=== PATIENT | male | born 1995 ===

== ENCOUNTER 2022-08-05 11:21 | Emergency (ER) | payer SELFPAY ==
--- NOTE | ~2022-08-05 | XR_ITS ---
EXAMINATION: XR KNEE, RIGHT CLINICAL INFORMATION: Right knee pain. COMPARISON: None available. TECHNIQUE: Four views of the right knee. FINDINGS: There is no acute fracture or dislocation. The joint spaces are unremarkable. Is no joint effusion. Incidental sclerotic lesion with narrow zone transition medially in the distal femoral metadiaphysis. The soft tissues are unremarkable. XR/XR knee RT 4V IMPRESSION: 1. No acute abnormality or significant degenerative changes. 2. 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
[2022-08-05 11:29] VITALS: BP 120/70; PULSE 76; RESP 18; TEMP 36.7; O2SAT 99; BMI 29.8
--- NOTE | 2022-08-05 11:31 | ED_ITS ---
HPI - General Adult General Chief complaint: Extremity Injury, Lower Stated complaint: r knee pain Time Seen by Provider: 08/05/22 11:35 History of Present Illness HPI narrative: Patient complains of right knee pain after twisting it and basketball yesterday, he can walk on it but he is limping Denies any other injury Related Data Allergies Allergy/AdvReac Type Severity Reaction Status Date / Time No Known Allergies Allergy Unverified 11/12/19 16:32 [facility] Past Medical History Source: nursing notes reviewed Social History Social History Alcohol intake: never Smoked in Last 30 Days: No Use of substances other than those prescribed or required for medical reasons: No Advance Directives: No Physical Exam ED Vital Signs: Vital Signs - 24 hr 08/05/22 11:29 08/05/22 12:53 Temperature 98.1 F Pulse Rate 76 77 Respiratory Rate 18 15 Blood Pressure 120/70 112/74 Pulse Oximetry 99 96 Oxygen Delivery Method Room Air Room Air BMI result Body Mass Index 29.8 General appearance no distress Head is normocephalic atraumatic Neck is supple Respiratory no distress Extremities full range of motion x4 including right knee which extends to 180 flexes well past 90, there is lateral joint line tenderness, there is no ligamentous laxity, he can do a straight leg raise, there is no obvious swelling no obvious effusion, skin is normal color, he can walk on it with a slight limp Course Course Course Narrative: RME: 26 yold male presents to the ED for right knee pain while playing basketball. patient denies any blunt trauma or falling. patient states doing huy kward cuts to the basket causing knee pain. Knee xray ordered Right knee x-ray showed no acute fracture or bony abnormality, incidental finding is sclerotic lesion in distal femoral, likely benign per radiologist, but patient is referred to orthopedist for further evaluation of this and his knee, he ambulated easily from the ER with a mild limp and was discharged follow with orthopedics which he agreed to do, he is given a copy of his x-ray report Discharge Plan Discharge Clinical Impression: Right knee sprain Patient Disposition: Home, Self-Care Additional Instructions: You likely sprained knee when you twisted and basketball, this may get better on its own over a couple weeks, follow with orthopedist call to make an appointment Also x-ray showed a bone lesion which is likely something called a fibroma, but best plan is see orthopedist and make sure if there is any follow-up or t reatment needed Return any time any worse condition or any concerns Apply ice, Motrin if needed Referrals: Zac Haider MD [Physician] - (Right knee sprain, incidental finding of sclerotic bone lesion) Interventions: ED Discharge Assessment Last Done: 08/05/22 12:53 Discharge Date/Time: 08/05/22 12:56
--- NOTE | 2022-08-05 11:36 | PC.NURSE ---
Patient was playing basketball last night and feels that he might have hyperextended his knee. Pain started last night but was worse this morning when he woke up. Patient is able to bear weight on the affected leg. Patient is otherwise well appearing.
[2022-08-05 12:53] VITALS: BP 112/74; PULSE 77; RESP 15; O2SAT 96
== END 2022-08-05 12:56 | disposition home or self-care (01) ==
PROVIDERS: Emergency Provider Student in an Organized Health Care Education/Training Program
DX: M25.561 Pain in right knee (principal)
CPT/HCPCS: 73564; 99283; 99284

== ENCOUNTER 2023-03-25 10:15 | Emergency (ER) | payer SELFPAY ==
--- NOTE | ~2023-03-25 | XR_ITS ---
EXAMINATION: XR LUMBAR SPINE XR SACRUM/COCCYX CLINICAL INFORMATION: Back pain. COMPARISON: None available. TECHNIQUE: 3 views of the lumbar spine. 3 views of the sacrum/coccyx. 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 Mild multilevel lumbar spondylosis. SACRUM/COCCYX: Mild degenerative changes with sclerosis in the bilateral sacroiliac joints. Small rounded pelvic calcifications, some of which could be vascular. Visualization of the sacrum/coccyx is limited due to overlying bowel and soft tissues. XR/XR lumbar spine 2-3V IMPRESSION: 1. Facet arthritis in the lower lumbar spine. 2. Mild multilevel lumbar spondylosis. 3. Mild degenerative changes with sclerosis in the bilateral sacroiliac joints. Correlation with clinical exam recommended to determine further management. If there is concern for fracture or other underlying pathology, MRI could be obtained for further evaluation.
--- NOTE | ~2023-03-25 | XR_ITS ---
EXAMINATION: XR LUMBAR SPINE XR SACRUM/COCCYX CLINICAL INFORMATION: Back pain. COMPARISON: None available. TECHNIQUE: 3 views of the lumbar spine. 3 views of the sacrum/coccyx. 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 Mild multilevel lumbar spondylosis. SACRUM/COCCYX: Mild degenerative changes with sclerosis in the bilateral sacroiliac joints. Small rounded pelvic calcifications, some of which could be vascular. Visualization of the sacrum/coccyx is limited due to overlying bowel and soft tissues. XR/XR sacrum coccyx min 2V IMPRESSION: 1. Facet arthritis in the lower lumbar spine. 2. Mild multilevel lumbar spondylosis. 3. Mild degenerative changes with sclerosis in the bilateral sacroiliac joints. Correlation with clinical exam recommended to determine further management. If there is concern for fracture or other underlying pathology, MRI could be obtained for further evaluation.
[2023-03-25 10:17] VITALS: BP 115/76; PULSE 72; RESP 19; TEMP 36.7; O2SAT 98; BMI 27.4
[2023-03-25] MEDS: Acetaminophen 325 MG TABLET 975 MG PO (11:56)
--- NOTE | 2023-03-25 11:56 | PC.NURSE ---
pt a&ox3, rt lower back pain 11/04, pt medicated per order, call salas within reach, will continue to monitor
--- NOTE | 2023-03-25 13:37 | ED.FALL ---
HPI - Fall General Chief Complaint: Fall Stated Complaint: fall back pain and leg pain Time Seen by Provider: 03/25/23 10:24 Source: patient and RN notes reviewed Mode of arrival: ambulatory Limitations: no limitations History of Present Illness HPI Narrative: This is a 27-year-old male, with no known medical problems, presenting to the emergency department complaints of low back pain status post mechanical fall which occurred yesterday. Patient states that he was playing basketball when suddenly he fell backwards onto his buttocks. He states that he was able to ambulate after the injury, states that he did not initially have pain however gradually throughout the rest of the evening his pain in his low back worsened. He states that the pain is constant and occasionally radiates into his right buttocks. Denies any numbness, tingling or weakness. No saddle anesthesia, no urinary or bowel incontinence. Denies history of back problems. He denies hitting his head or loss of consciousness during the fall. Denies headaches, dizziness, lightheadedness, chest pain, shortness of breath, abdominal pain, nausea, vomiting or diarrhea. Denies any urinary symptoms. No other complaints or concerns at this time. MD complaint: fall Onset (ago): day(s) Fall from: standing Fall witnessed: yes, by bystander Place fall occurred: street Loss of consciousness: none Prolonged down time: no Symptoms prior to fall: none Location of injury: buttocks Quality: aching Associated symptoms (after fall): denies Related Data Previous Rx's Medication Instructions Recorded ibuprofen 600 mg tablet 600 mg PO Q6H PRN pain #30 tabs 03/25/23 Allergies Allergy/AdvReac Type Severity Reaction Status Date / Time No Known Allergies Allergy Unverified 11/12/19 16:32 Review of Systems Review of Systems: Yes all other systems are reviewed and are negative [facility] Social History Social History Alcohol intake: never Advance Directives: No Advance Directives Information Provided: No Physical Exam Vital Signs: Vital Signs: Last Vital Signs Temp 98.0 F 03/25/23 10:17 Pulse 72 03/25/23 10:17 Resp 19 03/25/23 10:17 BP 115/76 03/25/23 10:17 Pulse Ox 98 03/25/23 10:17 O2 Del Method Room Air 03/25/23 10:17 BMI result Body Mass Index 27.4 Const: Other: General: Awake, alert, and oriented X3. No acute distress. HEENT: Normal inspection CVS: Normal heart rate and rhythm. Pulses normal. Respiratory: No respiratory distress Skin: Warm, dry, no rashes noted to exposed skin. Normal skin color. Normal skin turgor. Extremities: Normal to inspection MSK: Tenderness to palpation along the midline lumbar spine as well as and coccyx, worsening pain overlying the right paraspinous muscles. Strength 5/5 in lower extremities. Distal sensation circulation intact. Neuro: Oriented X 3. No motor deficit. No sensory deficit. Medications Administered Discontinued Medications Generic Name Dose Route Start Last Admin Trade Name Freq PRN Reason Stop Dose Admin Acetaminophen 975 mg 03/25/23 11:53 03/25/23 11:56 Acetaminophen 325 Mg Tablet PO 03/25/23 11:54 975 mg ONCE ONE Administration Medical Decision Making Medical Decision Making [facility] Narrative: This is a 27-year-old male presenting to the emergency department with complaints of low back pain status post mechanical fall which occurred yesterday. No LOC or head strike. On arrival, vital signs within normal limits. Patient has tenderness palpation along the lumbar midline spine, as well as sacrum and coccyx region, however more tenderness palpation along the lumbar paraspinous muscles. No urinary or bowel retention or incontinence. No saddle anesthesia. No other red flag back symptoms. He has not taken any medications at home to treat his current pain, medicated with Tylenol 1 g p.o. given midline spine tenderness, will obtain sacrum and coccyx x-ray as well as lumbar spine x-ray. These were reviewed revealing degenerative changes without any acute injury. I discussed these findings with patient, and I did advise patient to follow-up with his primary care physician for further evaluation as he may need additional diagnostic studies. He does not warrant any MRI testing at this time as he has no neurologic deficits on examination. Patient understands and agrees with plan. Patient stable for discharge. Differential Diagnosis Differential Diagnoses: The differential diagnosis associated with the presentation includes Contusion, sprain, strain, disc herniation, cauda equina syndrome-unlikely, pyelonephritis-unlikely given mechanism Independent Interpretation I performed an independent interpretation of an: Plain X-Ray Interpretation: I reviewed the x-ray and agree with the radiology report Radiology Impression Discussion of test interpretation with radiology: I have reviewed the radiologist's reading. Radiologist Impression: EXAMINATION: XR LUMBAR SPINE XR SACRUM/COCCYX CLINICAL INFORMATION: Back pain. COMPARISON: None available. TECHNIQUE: 3 views of the lumbar spine. 3 views of the sacrum/coccyx. 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 Mild multilevel lumbar spondylosis. SACRUM/COCCYX: Mild degenerative changes with sclerosis in the bilateral sacroiliac joints. Small rounded pelvic calcifications, some of which could be vascular. Visualization of the sacrum/coccyx is limited due to overlying bowel and soft tissues. XR/XR sacrum coccyx min 2V IMPRESSION: 1. Facet arthritis in the lower lumbar spine. 2. Mild multilevel lumbar spondylosis. 3. Mild degenerative changes with sclerosis in the bilateral sacroiliac joints. Correlation with clinical exam recommended to determine further management. If there is concern for fracture or other underlying pathology, MRI could be obtained for further evaluation. Dictated By: Sandy Kaufman MD Signed By: <Electronically signed by Sandy Kaufman MD in OV> Tests considered The following testing was considered but not selected: MRI however given no neurologic deficits or red flag back symptoms, will defer Discharge Plan Discharge Clinical Impression: Contusion of back, Spondylosis, Degenerative joint disease of sacroiliac joint Patient Disposition: Home, Self-Care Instructions: Acute Low Back Pain (ED) Additional Instructions: You were seen in the emergency department for back pain. Your x-ray of your back does not show any new bony abnormalities. Does show degenerative changes in your spine. I want to follow-up with your primary care physician regarding this visit, call today to make an appointment. Please rest, ice, gentle stretching massage can help with your symptoms. Ibuprofen also can be helpful to reduce inflammation pain. If any new or worsening symptoms occur including but not limited to numbness and tingling into your groin, urinary or bowel retention or incontinence, please immediately seek emergent care. If you develop any chest pain or shortness breast, please return for re-evaluation Prescriptions: New ibuprofen 600 mg tablet 600 mg PO Q6H PRN (Reason: pain) Qty: 30 0RF Stand Alone Forms: Work/School Release Interventions: ED Discharge Assessment Last Done: 03/25/23 14:00
== END 2023-03-25 14:09 | disposition home or self-care (01) ==
PROVIDERS: Emergency Provider Emergency Medicine
DX: S30.0XXA Contusion of lower back and pelvis, initial encounter (principal); W18.30XA Fall on same level, unspecified, initial encounter; Y93.67 Activity, basketball; Y92.9 Unspecified place or not applicable; Y99.9 Unspecified external cause status; M54.50 Low back pain, unspecified; M47.816 Spondylosis without myelopathy or radiculopathy, lumbar region; M46.1 Sacroiliitis, not elsewhere classified
CPT/HCPCS: 72100; 72220; 99283

== ENCOUNTER 2023-10-26 10:17 | Emergency (ER) | payer SELFPAY ==
--- NOTE | ~2023-10-26 | XR_ITS ---
EXAMINATION: XR CHEST CLINICAL INFORMATION: chest pain COMPARISON: None TECHNIQUE: 2 views of the chest FINDINGS: Lines and tubes: EKG leads overlie the patient. Clear lungs. No pleural effusion. No pneumothorax. Normal cardiomediastinal silhouette. XR/XR chest 2V IMPRESSION: * Clear lungs. Electronically signed by: Maribell Cheung MD 10/26/2023 01:08 PM EDT RP
--- NOTE | 2023-10-26 10:20 | ECG_ITS ---
Test Reason : CHEST PAIN Blood Pressure : / mmHG Vent. Rate : 085 BPM Atrial Rate : 085 BPM P-R Int : 168 ms QRS Dur : 084 ms QT Int : 356 ms P-R-T Axes : 078 065 028 degrees QTc Int : 423 ms Normal sinus rhythm Normal ECG No previous ECGs available Referred By: Generic ED Physician Electronically Signed By:CLARITA SALEH
[2023-10-26 10:29] VITALS: BP 119/71; PULSE 94; RESP 16; TEMP 36.7; O2SAT 100; BMI 27.5
--- NOTE | 2023-10-26 10:46 | ED.CHESTPAIN ---
HPI - Chest Pain General Chief Complaint: Chest Pain Stated Complaint: chest pain Time Seen by Provider: 10/26/23 10:36 Source: patient Mode of arrival: ambulatory Limitations: no limitations History of Present Illness HPI narrative: This is a 28 years old male presented to the emergency department complaining of left side chest wall pain since yesterday pain is worse with movement. He states that he has been doing a lot a push-up. Denies any shortness of breath any other systemic symptoms complaint: chest pain Onset (ago): day(s) (1) Timing of current episode: constant Pain location: substernal and left chest Severity: moderate Quality: aching Relieving factors: rest Exacerbating factors: movement Risk Factors Thoracic aortic dissection risk factors: none Related Data Previous Rx's ?Medication ?Instructions ?Recorded ibuprofen 600 mg tablet 600 mg PO Q6H PRN pain #30 tabs 03/25/23 ibuprofen 800 mg tablet 800 mg PO TID PRN pain #20 tabs 10/26/23 Allergies Allergy/AdvReac Type Severity Reaction Status Date / Time No Known Allergies Allergy Verified 10/26/23 10:30 Review of Systems Constitutional: Constitutional: Reports no additional constitutional complaints ENT: Reports system reviewed and no additional complaints, except as documented Cardiovascular: Cardiovascular: Reports as per HPI [facility] Past Medical History [facility] Narrative: Denies any major medical Social History Social History Alcohol intake: never Advance Directives: No Advance Directives Information Provided: Yes Do you have a plan to hurt others: No Plan Physical Exam Vital Signs: Vital Signs: Last Vital Signs Temp 98.2 F 10/26/23 13:09 Pulse 65 10/26/23 13:09 Resp 16 10/26/23 13:09 BP 112/69 10/26/23 13:09 Pulse Ox 98 10/26/23 13:09 O2 Del Method Room Air 10/26/23 13:09 BMI result Body Mass Index 27.5 Const: General: cooperative Nutritional Appearance: average body habitus Orientation/consciousness: patient oriented x3 Limitations: no limitations HEENT: Head: Yes normal to inspection Ears: hearing grossly normal bilaterally General nose exam: Normal external nose present Face and sinus: Yes normal facial exam Mouth: Normal oral and palatal mucosa present Neck: Neck: Yes normal visual inspection Chest: Chest palpation & inspection: normal inspection of the chest Resp: Effort & Inspection: normal respiratory effort Cardio: Jugular venous distension: no JVD Palpation: normal PMI Rate: regular rate GI: Inspection: Yes normal to inspection Skin: General skin exam: no rashes or lesions noted Neuro: General: patient oriented x3 Course Reevaluation(s) Reevaluation #1: Patient is feeling much better at this time chest x-ray negative EKG normal this is clearly musculoskeletal pain Time: 13:53 Medications Administered Discontinued Medications Generic Name Dose Route Start Last Admin Trade Name Freq PRN Reason Stop Dose Admin Ibuprofen 800 mg 10/26/23 10:49 10/26/23 10:59 Ibuprofen 800 Mg Tablet PO 10/26/23 10:50 800 mg ONCE ONE Administration Medical Decision Making Medical Decision Making [facility] Narrative: Patient presented to the emergency department with chest wall pain clearly musculoskeletal will do an EKG a chest x-ray Differential Diagnosis Differential Diagnoses: The differential diagnosis associated with the presentation includes ACS/pneumothorax/ribs fracture/musculoskeletal pain Independent Interpretation I performed an independent interpretation of an: EKG (Normal sinus rhythm no ST-T changes) Radiology Impression Discussion of test interpretation with radiology: I have reviewed the radiologist's reading. Discharge Plan Discharge Clinical Impression: Chest pain Qualifiers: Chest pain type: unspecified Qualified Code(s): R07.9 - Chest pain, unspecified Patient Disposition: Home, Self-Care Instructions: Chest Pain (ED) Additional Instructions: Follow-up with your primary care physician return if you worse Prescriptions: New ibuprofen 800 mg tablet 800 mg PO TID PRN (Reason: pain) Qty: 20 0RF No Action ibuprofen 600 mg tablet 600 mg PO Q6H PRN (Reason: pain) Qty: 30 0RF Print Language: Bangladeshi
--- NOTE | 2023-10-26 10:50 | PC.NURSE ---
pt to xray at this time.
[2023-10-26] MEDS: Ibuprofen 800 MG TABLET PO (10:59)
--- NOTE | 2023-10-26 11:02 | PC.NURSE ---
a&ox4. vss and up to date. pt presents to the ED w/ nonradiating left sided chest wall pain x a few days ago. denies any aggravating factors aside from working out more recently. denies any associated sob. no wob noted. respirations even/unlabored. plan of care ongoing.
--- NOTE | 2023-10-26 13:05 | PC.NURSE ---
pt continues to rest in no apparent distress. waiting for xray results at this time. no sob/wob noted. respirations even/unlabored. plan of care ongoing. call salas placed within reach.
[2023-10-26 13:09] VITALS: BP 112/69; PULSE 65; RESP 16; TEMP 36.8; O2SAT 98
[2023-10-26 13:54] VITALS: BP 112/69; PULSE 65; RESP 16; TEMP 36.8; O2SAT 98
== END 2023-10-26 13:58 | disposition home or self-care (01) ==
PROVIDERS: Emergency Provider Emergency Medicine
DX: R07.9 Chest pain, unspecified (principal)
CPT/HCPCS: 71046; 93005; 99283; 99285

== ENCOUNTER 2024-01-25 12:52 | Emergency (ER) | payer MEDICAID, SELFPAY ==
[2024-01-25 12:59] VITALS: BP 117/67; PULSE 77; RESP 18; TEMP 36.9; O2SAT 98; BMI 26.3
--- NOTE | 2024-01-25 13:01 | ED.GENADULT ---
HPI - General Adult General Chief complaint: Eye Problems Stated complaint: poked in eye Time Seen by Provider: 01/25/24 13:17 Source: patient Mode of arrival: ambulatory Limitations: no limitations History of Present Illness ED Provider: Candida Lopes NP HPI narrative: Patient is a 28-year-old male presents emergency department for evaluation. Reports yesterday he was accidentally poked in the eye by another person's finger while playing basketball. He endorses a foreign body type sensation, has redness swelling and bruising to the medial canthus/periorbital region of the eye. Does not wear contact lenses. Has associated photophobia Related Data Previous Rx's ?Medication ?Instructions ?Recorded ibuprofen 600 mg tablet 600 mg PO Q6H PRN pain #30 tabs 03/25/23 ibuprofen 800 mg tablet 800 mg PO TID PRN pain #20 tabs 10/26/23 ofloxacin 0.3 % eye drops See Rx Instructions ophthalmic 01/25/24 (eye) .COMPLEX #10 mL Allergies Allergy/AdvReac Type Severity Reaction Status Date / Time No Known Allergies Allergy Verified 01/25/24 13:02 Review of Systems Review of Systems: Yes all other systems are reviewed and are negative PMFSH Past Medical History Attestation statement: The following information was validated with the patient. Source: old records reviewed Social History Social History Alcohol intake: never Advance Directives: No Advance Directives Information Provided: Yes Do you have a plan to hurt others: No Plan Physical Exam ED Vital Signs: Vital Signs - 24 hr 01/25/24 12:59 Temperature 98.4 F Pulse Rate 77 Respiratory Rate 18 Blood Pressure 117/67 Pulse Oximetry 98 Oxygen Delivery Method Room Air BMI result Body Mass Index 26.3 Appearance: Alert.?Oriented to person, place and time. No acute distress.?Normal affect. Eyes: Pupils equal, round and reactive to light.? EOMI. No nystagmus. Conjunctival injected and erythematous. Sclera injected and erythematous. IOP: Left - 16, Right - 19. Visual acuity: Left - 20/40, Right - 20/50, Both 20/25. Fluorescein staining without evidence of uptake/corneal abrasion. No chemosis. No hyphema. ENT: Pharynx normal.?? Neck: Normal inspection.? Neck supple.?? CVS: Heart sounds normal. Normal heart rate and rhythm.? Pulses normal.?? Respiratory: No respiratory distress.? Lung sounds clear to auscultation bilaterally?? Skin: Skin warm and dry.? Normal skin color.? Extremities: No lower extremity edema.? Neuro: Moves all extremities spontaneously. Sensation intact bilaterally. CN II-XII intact. No focal neuro deficits. Ambulates with normal steady gait. Course Course Course Narrative: This is a Rapid Medical Examination (RME) performed by Jose De Jesus Gaffney PA-C in triage. Full HPI, ROS, assessment and treatment plan per primary provider in the Main ED. 28 yo male here for eval of right eye pain and blurred vision after being poked in the affected eye by a finger while playing basketball last night. endorses FB sensation. +erythema/ecchymosis to upper eyelid. noted conjunctival injection. no obvious FB. photophobia. EOMs intact without entrapment, pain on upward motion. Plan: visual acuity, fluorescein, tetracaine, IOPs Medical Decision Making Medical Decision Making MDM Narrative: Presenting to emergency department for evaluation of traumatic injury to the right eye. Poked in the eye while playing basketball, pain is not out of proportion, acuity is near symmetrical to the left, negative Linette sign, no teardrop pupil, no evidence of a hyphema lip laceration to suggest globe rupture. No tenderness upon palpation to the orbit, restriction and gaze to suggest blowout fracture. No hyphema. No proptosis, increased intra-ocular pressure, or impaired EOM to suggest retro-orbital hemorrhage. Fluorescein staining without evidence of uptake to suggest corneal abrasion, ulcer, or hepatic dendrite. No evidence of foreign body on examination, lid eversion is negative. No associated unilateral headache, fixed pupil, associated vomiting, or increased intra-ocular pressure to suggest acute angle glaucoma. No periorbital edema erythema or warmth to suggest periorbital cellulitis, no painful EOMI to suggest orbital cellulitis. No ciliary flushing or consensual photophobia to suggest uveitis/iritis. Patient being discharged with prescription for ofloxacin drops and strict return precautions Differential Diagnosis Differential Diagnoses: The differential diagnosis associated with the presentation includes (See narrative above) External Record Review External record reviewed: Outpatient record Prescription Management I considered prescription management with: Pain Medication and Antibiotic Discharge Plan Discharge Clinical Impression: Conjunctivitis Qualifiers: Conjunctivitis type: acute Laterality: right Patient Disposition: Home, Self-Care Instructions: Conjunctivitis (ED) Additional Instructions: Warm moist compresses for 10-15 minutes 3-4 times daily. You can take ibuprofen 200 mg, 3 tablets (600mg) every 6-8 hours as needed for pain, in addition to Tylenol 500 mg, 2 tablets (1,000mg) every 4-6 hours as needed for pain, but not to exceed 3 doses daily (3,000mg).? Use antibiotic eyedrops as prescribed. As discussed, if you have sudden worsening or change to your pain, visual changes, new or worsening symptoms or concerns you should seek re-evaluation promptly. Prescriptions: New ofloxacin 0.3 % drops See Rx Instructions .ROUTE .COMPLEX Qty: 10 0RF Rx Instructions: put 1-2 drps into affected eye(s) every 2-4 h x 2 days, then 1-2 drps 4 times/day days 3-7 No Action ibuprofen 600 mg tablet 600 mg PO Q6H PRN (Reason: pain) Qty: 30 0RF ibuprofen 800 mg tablet 800 mg PO TID PRN (Reason: pain) Qty: 20 0RF Referrals: Physician,None [Primary Care Provider] - Print Language: Latvian
[2024-01-25] MEDS: Fluorescein Sodium STRIP 1 STRIP EYE-RIGHT (13:37)
[2024-01-25] MEDS: Tetracaine HCl/PF 0.5% Oph Sol 4 ML DROPS 1 DROP EYE-RIGHT (13:37)
[2024-01-25 13:59] VITALS: BP 117/67; PULSE 77; RESP 18; TEMP 36.9; O2SAT 98
== END 2024-01-25 14:02 | disposition home or self-care (01) ==
PROVIDERS: Emergency Provider Emergency Medicine
DX: H10.31 Unspecified acute conjunctivitis, right eye (principal); H57.11 Ocular pain, right eye
CPT/HCPCS: 99282; 99283

== ENCOUNTER 2024-06-02 08:20 | Emergency (ER) | payer MEDICAID, SELFPAY ==
[2024-06-02 08:28] VITALS: BP 118/82; PULSE 66; RESP 18; TEMP 36.6; O2SAT 99; BMI 26.4
--- NOTE | 2024-06-02 09:18 | ED.GENADULT ---
HPI - General Adult General Chief complaint: General Medical Stated complaint: Facial swelling L side Time Seen by Provider: 06/02/24 10:05 Source: patient Mode of arrival: ambulatory Limitations: no limitations History of Present Illness ED Provider: DULCE BRANTLEY narrative: 28 yo male otherwise healthy upper gum pain and now cheek swelling on and off for 3 days. No vision issues, no severe headaches and no fevers. He states he cannot see his dentist until next week. He is able to eat and drink. MD complaint: dental and facial swelling Onset (ago): day(s) (3) Location: mouth Radiation: non-radiation Severity: moderate Quality: aching Pain Consistency: constant Relieving factors: none Exacerbating factors: eating Associated symptoms: denies other symptoms Treatments prior to arrival: none Related Data Previous Rx's ?Medication ?Instructions ?Recorded ibuprofen 600 mg tablet 600 mg PO Q6H PRN pain #30 tabs 03/25/23 ibuprofen 800 mg tablet 800 mg PO TID PRN pain #20 tabs 10/26/23 ofloxacin 0.3 % eye drops See Rx Instructions ophthalmic 01/25/24 (eye) .COMPLEX #10 mL amoxicillin 875 mg-potassium 1 tab PO BID #14 tabs 06/02/24 clavulanate 125 mg tablet tramadol 50 mg tablet 50 mg PO Q8H PRN pain #12 tabs 06/02/24 Allergies Allergy/AdvReac Type Severity Reaction Status Date / Time No Known Allergies Allergy Verified 06/02/24 08:30 Review of Systems Review of Systems: Constitutional : No Fever, No Chills ENT/Mouth : No swallowing difficulty, no change in voice, positive dental pain, positive jaw pain, positive facial swelling Eyes: No Eye Pain, No Swelling Cardiovascular : No Chest Pain, No SOB Respiratory : No Cough, No Sputum Gastrointestinal : No Nausea, No Vomiting, No Diarrhea Genitourinary : No Dysuria Musculoskeletal : No Myalgias Skin : No rash Neuro : No Weakness, No Numbness, No Headache all other systems reviewed and are negative [facility] Past Medical History Attestation statement: The following information was validated with the patient. Source: old records reviewed Medical History No pertinent past medical history Social History Social History (Updated 06/02/24 @ 10:22 by Janeen Fisk, DO) Alcohol intake: never Patient Tobacco Use Status: Never used Tobacco Physical Exam ED Vital Signs: Vital Signs - 24 hr 06/02/24 08:28 Temperature 98 F Pulse Rate 66 Respiratory Rate 18 Blood Pressure 118/82 Pulse Oximetry 99 Oxygen Delivery Method Room Air BMI result Body Mass Index 26.4 Appearance: Alert. Oriented X3. No acute distress. Eyes: Pupils equal, round and reactive to light. ENT: No trismus has poor dentition and fluctuant area but not large unable to aspirate, L cheek very isolated boggy area but no redness and no extension to eye - normal EOM Neck: Normal inspection. Neck supple. CVS: Normal heart rate and rhythm. Pulses normal. Respiratory: No respiratory distress. Breath sounds normal. Abdomen: Soft and nontender. Skin: Skin warm and dry. Normal skin color. Normal skin turgor. Extremities: No lower extremity edema. No calf ttp Neuro: Oriented X 3. No motor deficit. No sensory deficit. CN2-12 intact Course Course Course Narrative: This is a rapid medical exam performed by Rose Mary Munson NP: Additional HPI, ROS, PE not included below will be deferred to primary provider. 06/02/24 09:18 patient is a 28-year-old male presenting to the emergency department with complaint of left upper dental pain as well as left maxillary sinus pain and facial swelling for the past few days. Denies fevers or drainage from the area. Has an appointment with the dentist next Saturday. Poor dentition with caries, gingiva erythematous/white and very TTP. Plan: labs, needs CT Medical Decision Making Medical Decision Making MDM Narrative: 28 yo male here with isolated tooth pain and signs of dental abscess he has no signs of extension to deeper spaces and has no trismus or extention to eye/sublingual/submandibular space. I cannot aspirate the area. At this time will refer to dentist and DC on pain control and augmentin. Differential Diagnosis Differential Diagnoses: The differential diagnosis associated with the presentation includes dental infection, abscess Admission/Observation Consideration of admission/observation: Escalation of care including admission/observation considered no signs of deeper space infection can be managed as outpatient External Record Review External record reviewed: Outpatient record Prescription Management I considered prescription management with: Pain Medication and Antibiotic Discharge Plan Discharge Clinical Impression: Tooth ache, Dental infection Patient Disposition: Home, Self-Care Instructions: Dental Abscess (ED), Toothache (ED) Additional Instructions: you need to see a dentist as soon as possible return for increased swelling pain fevers or any other concerns On amoxicillin-clavulanate, softer bowel movements are to be expected. Call your provider if you move your bowels more than 4 times a day, your bowel movements are almost all liquid, or you get a rash.? Prescriptions: New amoxicillin-pot clavulanate 875-125 mg tablet 1 tab PO BID Qty: 14 0RF tramadol 50 mg tablet 50 mg PO Q8H PRN (Reason: pain) Qty: 12 0RF No Action ibuprofen 600 mg tablet 600 mg PO Q6H PRN (Reason: pain) Qty: 30 0RF ibuprofen 800 mg tablet 800 mg PO TID PRN (Reason: pain) Qty: 20 0RF ofloxacin 0.3 % drops See Rx Instructions .ROUTE .COMPLEX Qty: 10 0RF Rx Instructions: put 1-2 drps into affected eye(s) every 2-4 h x 2 days, then 1-2 drps 4 times/day days 3-7 Stand Alone Forms: Work/School Release Print Language: Ivorian
[2024-06-02 10:36] VITALS: BP 118/82; PULSE 66; RESP 18; TEMP 36.7; O2SAT 99
== END 2024-06-02 10:36 | disposition home or self-care (01) ==
PROVIDERS: Emergency Provider Emergency Medicine
DX: K04.7 Periapical abscess without sinus (principal); K08.89 Other specified disorders of teeth and supporting structures
CPT/HCPCS: 99283; 99284